=== PATIENT | female | born 1950 | race Caucasian/White ===

== ENCOUNTER 2020-03-07 14:31 | Emergency (ER) | payer BC ==
[~2020-03-07] VITALS: Ht 165.1 cm; Wt 70.8 kg
[~2020-03-07 14:31] MED LIST: ALEVE220 MG PO; NOHOMEMEDICATIONS; NORCO 5-325 TA1 EACH PO; TYLENOL P.M. E1 EAC3 PO
[2020-03-07] MEDS ORDERED: PREDNISONE 20 M20 M1 PO (16:36)
[2020-03-07] MEDS ORDERED: PROMETH-CODEIN 65 ML PO (16:36)
[2020-03-07] MEDS ORDERED: LEVAQUIN 500 M500 MG PO (16:36)
[2020-03-07] MEDS ORDERED: VENTOLIN HFA 1818 GM INH (16:36)
[2020-03-07 16:54] VITALS: BP 140/70
== END 2020-03-07 16:55 | disposition home or self-care (01) ==
LOC: M.ERS 14:31
DX: J18.9 Pneumonia, unspecified organism (principal); Z20.828 Contact with and (suspected) exposure to other viral communicable diseases; Z88.8 Allergy status to other drugs, medicaments and biological substances; Z85.3 Personal history of malignant neoplasm of breast; Z90.711 Acquired absence of uterus with remaining cervical stump; Z90.49 Acquired absence of other specified parts of digestive tract; Z90.11 Acquired absence of right breast and nipple